=== PATIENT | male | born 2000 | race Caucasian/White ===

== ENCOUNTER 2022-12-05 02:38 | Emergency (ER) | payer SELFPAY ==
[~2022-12-05] VITALS: Ht 162.6 cm; Wt 78.0 kg
[2022-12-05 02:41] VITALS: BP 139/78
--- NOTE | 2022-12-05 02:45 | NUR ---
TO BED AMBULATORY
--- NOTE | 2022-12-05 02:50 | NUR ---
Patient resting in bed, A/Ox4, chest rise and fall symmetrical, no s/s of distress, patient on monitor.
--- NOTE | 2022-12-05 02:50 | NUR ---
Dr. Riddle assessing patient.
[2022-12-05] MEDS ORDERED: ONDANSETRON 4 MG/2 ML VIAL IVP ONE (02:55)
[2022-12-05] MEDS ORDERED: MORPHINE SULFATE 4 MG/ML SYR IVP ONE (02:55)
[2022-12-05] MEDS ORDERED: NACL 0.9% 1,000 ML IV ONE (03:00)
[2022-12-05 03:16] LABS: BASOPHILS # (AUTO) 0.1 K/uL (0.00-0.22); BASOPHILS % (AUTO) 0.6 % (0.0-2.0); EOSINOPHILS % (AUTO) 0.1 % (0.0-4.0); HEMATOCRIT 47.9 % (36-52); HEMOGLOBIN 16.4 g/dL (12.0-18.0); LYMPHOCYTES # (AUTO) 1.2 K/uL (2.0-11.5); LYMPHOCYTES % (AUTO) 6.9 % (20.5-51.1); MEAN CORPUSCULAR HEMOGLOBIN 29 pg (27-31); MEAN CORPUSCULAR HGB CONC 34 g/dL (33-37); MONOCYTES # (AUTO) 0.7 K/uL (0.8-1.0); NEUTROPHILS # (AUTO) 15.5 K/uL (1.8-7.7); PLATELET COUNT (AUTO) 217 K/uL (140-450); RED CELL DISTRIBUTION WIDTH 14.2 % (11.6-13.7); WHITE BLOOD COUNT (AUTO) 17.6 K/uL (4.8-10.8)
[2022-12-05 03:33] LABS: NEUTROPHILS % (AUTO) 88.4 % (42.2-75.2)
[2022-12-05 03:35] LABS: ALBUMIN 4.9 g/dL (3.4-5.0); ANION GAP 11.3 (8-16); CARBON DIOXIDE 27.3 mmol/L (21-32); POTASSIUM 3.6 mmol/L (3.5-5.1); TOTAL BILIRUBIN 0.5 mg/dL (0.0-1.0)
[2022-12-05 03:38] LABS: APPEARANCE,URINE CLEAR (CLEAR); BILIRUBIN,URINE NEGATIVE (NEGATIVE); BLOOD, URINE NEGATIVE (NEGATIVE); COLOR,URINE YELLOW (YELLOW); LEUKOCYTE ESTERASE ,URINE NEGATIVE (NEGATIVE); NITRITE, URINE NEGATIVE (NEGATIVE); UGLUCOSE NEGATIVE (NEGATIVE)
--- NOTE | 2022-12-05 04:14 | NUR ---
Patient resting in bed, A/Ox4, chest rise and fall symmetrical, no s/s of distress, patient on monitor.
--- NOTE | 2022-12-05 06:04 | NUR ---
Patient resting in bed, A/Ox4, chest rise and fall symmetrical, no s/s of distress, patient on monitor.
[2022-12-05] MEDS ORDERED: PANTOPRAZOLE 40 MG INJ VIAL IVP ONE (06:10)
[2022-12-05] MEDS ORDERED: FAMO-92 PO (06:23)
[2022-12-05 06:42] VITALS: BP 112/85
== END 2022-12-05 06:43 | disposition home or self-care (01) ==
LOC: MED 02:38
DX: K29.70 Gastritis, unspecified, without bleeding (principal)
CPT/HCPCS: 36415; 74176; 76705; 80053; 81003; 82150; 83605; 83690; 85025; 87040; 96361; 96374; 96375; 99285; C9113; J2270; J2405; J7030; Q0092